=== PATIENT | female | born 1965 | race Caucasian/White ===

== ENCOUNTER 2017-07-29 22:00 | Emergency (ER) | payer OTHER ==
[2017-07-29] MEDS: DIPHTH,PERTUSS(ACELL),TET TOX 0.5 ML DISP.SYRIN. VAX IM (22:46)
== END 2017-07-29 22:50 | disposition home or self-care (01) ==
LOC: ER 22:00
DX: L03.211 Cellulitis of face (principal); I10 Essential (primary) hypertension; E78.00 Pure hypercholesterolemia, unspecified; Z86.718 Personal history of other venous thrombosis and embolism; Z88.5 Allergy status to narcotic agent; Z88.8 Allergy status to other drugs, medicaments and biological substances; Z91.012 Allergy to eggs
CPT/HCPCS: 99283

== ENCOUNTER 2017-10-23 21:36 | Emergency (ER) | payer OTHER ==
[2017-10-23] MEDS: KETOROLAC 60 MG/2 ML INJ. IM (21:51)
[2017-10-23] MEDS: KETOROLAC 30 MG/ML INJ. IV (21:51)
[2017-10-23] MEDS: silver sulfADIAZINE 1% CREAM 25GM TUBE. TP (21:54)
== END 2017-10-23 22:45 | disposition home or self-care (01) ==
LOC: ER 22:45
DX: T24.101A Burn of first degree of unspecified site of right lower limb, except ankle and foot, initial encounter (principal); T24.102A Burn of first degree of unspecified site of left lower limb, except ankle and foot, initial encounter; I10 Essential (primary) hypertension; E78.00 Pure hypercholesterolemia, unspecified; Z86.718 Personal history of other venous thrombosis and embolism; Z88.5 Allergy status to narcotic agent; Z88.8 Allergy status to other drugs, medicaments and biological substances; Z91.012 Allergy to eggs; T54.91XA Toxic effect of unspecified corrosive substance, accidental (unintentional), initial encounter; Y92.89 Other specified places as the place of occurrence of the external cause
CPT/HCPCS: 16020; 96372; 96374; 99284-25; J1885